=== PATIENT | female | born 1970 | race Caucasian/White ===

== ENCOUNTER → 2021-02-08 | Outpatient (CLI) | payer MEDICARE, OTHER | LOC: MAMO 14:00 | DX: N64.4 Mastodynia (principal); N63.0 Unspecified lump in unspecified breast | CPT/HCPCS: 76642-LT; 76642-RT; 77066; G0279 ==

== ENCOUNTER → 2021-03-04 | Outpatient (CLI) | payer MEDICARE, OTHER ==
[2021-03-04 13:48] LABS: HEMOGLOBIN 12.4 gm/dl (12.3-15.3); RED BLOOD COUNT 3.77 M/UL (4.00-5.10); WHITE BLOOD COUNT 5.6 K/UL (4.5-11.0)
[2021-03-04 14:26] LABS: BUN/CREATININE RATIO 19 (0-10)
[2021-03-05 08:13] LABS: RPR Non Reactive (Non Reactive)
[2021-03-05 09:13] LABS: VITAMIN D, 25-HYDROXY 86.9 ng/mL (30.0-100.0)
[2021-03-05 10:13] LABS: FSH 7.8 mIU/mL (.); PROGESTERONE 4.6 ng/mL (.)
== END ==
LOC: LAB 12:43
PROVIDERS: Nurse Practitioner Family
DX: Z11.3 Encounter for screening for infections with a predominantly sexual mode of transmission (principal); Z01.419 Encounter for gynecological examination (general) (routine) without abnormal findings; E78.5 Hyperlipidemia, unspecified; E03.9 Hypothyroidism, unspecified; R42 Dizziness and giddiness; E55.9 Vitamin D deficiency, unspecified; Z79.899 Other long term (current) drug therapy
CPT/HCPCS: 36415; 80053; 80061; 82607; 82670; 83001; 84144; 84402; 84403; 84439; 84443; 85025; 86592; 86695; 86696; 87389

== ENCOUNTER 2021-04-16 22:48 | Emergency (ER) | payer MEDICARE, OTHER ==
[2021-04-16 23:39] LABS: HEMOGLOBIN 12.9 gm/dl (12.3-15.3); RED BLOOD COUNT 3.91 M/UL (4.00-5.10); WHITE BLOOD COUNT 5.9 K/UL (4.5-11.0)
[2021-04-17 00:06] LABS: BUN/CREATININE RATIO 20 (0-10)
== END 2021-04-16 22:54 | disposition home or self-care (01) ==
LOC: ER1 22:48
PROVIDERS: Family Medicine
DX: R07.9 Chest pain, unspecified (principal)
CPT/HCPCS: 71045; 80053; 82550; 82553; 83874; 84484; 85025; 85379; 93005; 99285

== ENCOUNTER → 2021-09-16 | Outpatient (CLI) | payer MEDICARE, OTHER | LOC: KOH-I 09-09 13:00 | DX: R09.81 Nasal congestion (principal); R51.9 Headache, unspecified | CPT/HCPCS: 70486 ==